=== PATIENT | female | born 1930 | race Hispanic/Latino ===

== ENCOUNTER 2017-01-08 06:15 | Day surgery (SDC) | payer MEDICARE ==
[2017-01-04 10:38] VITALS: BMI 19.5
[2017-01-08] MEDS ORDERED: Lidocaine 2% w Epi 1:100,000 Inj IJ ONE (07:02)
[2017-01-08] MEDS ORDERED: Bupivacaine 0.5% Inj(30mL) ONE (07:02)
[2017-01-08] MEDS ORDERED: Bacitracin Ointment 30 GM TUBE ONE (07:02)
[2017-01-08 07:04] VITALS: RESP 18
[2017-01-08] MEDS ORDERED: Succinylcholine 200 mg/10 ml Inj IV ONE (07:10)
[2017-01-08] MEDS ORDERED: Rocuronium 10 mg/ml (5 ml) ONE (07:10)
[2017-01-08] MEDS ORDERED: Propofol 10 mg/ml Inj (20 ML) ONE ×3 (07:10→08:07)
[2017-01-08] MEDS ORDERED: Lactated Ringer's 1,000 ML IV ONE (07:45)
[2017-01-08] MEDS ORDERED: ePHEDrine 50 mg/ml Inj ONE (08:13)
[2017-01-08] MEDS ORDERED: Bacitracin OINT 15GM TOP ONE (08:50)
[2017-01-08] MEDS ORDERED: Bupivacaine 0.5% 50 ML IJ ONE (08:50)
--- NOTE | 2017-01-08 08:53 | PCM.SURG1 ---
Surgeon's Initial Post Op Note - Surgeon's Notes Surgeon: Dr. Kumar Edge Trimming Machine Operator: Dr. Manfred Araya Type of Anesthesia: General Mask Pre-Operative Diagnosis: Status post Left forearm ORIF, external fixation to Left forearm, internal fixation of screws and plate Operative Findings: Materials: 4-0 Nylon Post-Operative Diagnosis: same Operation Performed: Removal of external fixation, removals of hardware, promary closure of skin, application of splint Specimen/Specimens Removed: none Estimated Blood Loss: EBL {In ML}: 1 Blood Products Given: N/A Drains Used: No Drains Post-Op Condition: Good Date of Surgery/Procedure: 01/08/17 Time of Surgery/Procedure: 08:28
[2017-01-08] MEDS ORDERED: Sodium Chloride 0.9% 1,000 ML IV ONE (08:55)
--- NOTE | 2017-01-08 11:32 | RAD ---
PROCEDURE: Intraoperative Fluoroscopy. HISTORY: LEFT WRIST REMOVAL OF HARDWARE FINDINGS: 7.8 seconds of fluoroscopy time utilized during this procedure.
--- NOTE | 2017-01-08 12:23 | RAD ---
PROCEDURE: Left Wrist Radiographs. HISTORY: Removal external fixator left wrist COMPARISON: Correlation made with fluoroscopy image obtained earlier same day FINDINGS: BONES: Interval removal 3 metallic fixation K-wires and external fixation hardware from the distal left radius. Healing comminuted intra-articular fractures distal left radius and ulna . Residual screw holes within the distal shafts of the radius - ulna and proximal 2nd metacarpal from since removed fixation external fixation device . ORIF of plate attached to the distal ulna is unchanged. Diffuse demineralization JOINTS: Marked irregularity of the radiocarpal articulation SOFT TISSUES: Marked postoperative irregularity of the subcutaneous tissues distal forearm and left wrist. OTHER FINDINGS: None. IMPRESSION: Interval removal 3 metallic fixation K-wires and external fixation hardware from the distal left radius. Healing comminuted intra-articular fractures distal left radius and ulna Residual screw holes within the distal shafts of the radius - and proximal 2nd metacarpal ulna from since removed fixation external fixation device . ORIF of plate attached to the distal ulna is unchanged.
[2017-01-08 14:55] VITALS: BP 153/58; PULSE 58; TEMP 97.4; O2SAT 98
--- NOTE | 2017-01-08 21:52 | OP ---
PROCEDURE DATE: 01/08/2017 PREOPERATIVE DIAGNOSES: Status post distal radius ulnar fracture with application of external fixato r and pin fixation of the distal radius, status post open reduction and internal fixation of the ulna . POSTOPERATIVE DIAGNOSES: 1. Painful hardware, deep. 2. External fixator. 3. Essentially healed distal radius ulnar fracture. PROCEDURES: 1. Removal of hardware, deep. 2. Removal of external fixator. 3. Manipulation of the wrist under anesthesia. 4. Intraarticular injection. 5. Application of volar splint. SURGEON: Nathaniel Kumar MD MILL ROLL REWINDER: Maria Eugenia Berry, Certified Registered Nursing Hemp Fiber Taker Off. ANESTHESIA: General endotracheal anesthesia, COMPLICATIONS: No complications. DRAINS: No drains. OPERATIVE INDICATION: The patient is an 86-year-old female who presents after a severe comminuted di splaced distal radius ulnar fracture. The patient presents after successful closed reduction and pin fixation of a distal radius fracture and open reduction, internal fixation of the ulnar fracture. T he construct was essentially healed. The patient presents for removal of the external fixator and re moval of hardware, deep. OPERATIVE PROCEDURE: After having obtained informed consent in the above fashion, after having horace martin discussed the pros, cons, risks and benefits of surgical approach, possibility of later seconda ry bone grafting had been discussed. The possibility of nonunion, delayed union is discussed as well . The patient can no longer stand the fixator and wishes the hardware to be removed and the fixator be removed at all cost. After having obtained informed consent in the above fashion, after having identified side, site and p rocedure and a critical pause/timeout, after the satisfactory induction of the anesthetic, patient id entified as correct in the supine position with all bony prominences well padded, the left upper extr emity is visualized under image intensification views, AP and lateral. The distal radius construct w as essentially healed. The radial joint line has been reestablished. There is some metaphyseal semaj yed union, but it is minor. At this point in time, using a wireless architect, the pins are removed below t he external fixator. The external fixator is removed. At this point in time, the left upper extremi ty is prepped and free draped in the usual fashion for upper extremity surgery. Under the surgeon's direction, the fluoroscope was positioned, video images are generated, therapeutic decisions are made there from. This having been accomplished, the 3 pins at the radial aspect of the distal radius wer e sequentially removed. Verification of position is offered on AP and lateral intensification views. At this point in time, using a [employer] ____ the remaining pins in the metacarpals and the radial sh aft are removed. The wounds are thoroughly irrigated. Closure is in layers with interrupted nylon. Intraarticular injection is offered, and injection is offered on the pin tracts. Nain Villalobos compr ession dressing and volar splint is applied. It should be noted that prior to splint application, un janna the surgeon's direction, the fluoroscope was positioned and the wrist was manipulated beautifully , some minor limitation at terminal dorsiflexion and plantarflexion. There was found to be some PIP contractures and MCP contractures and these are manipulated as well. The volar splint was applied, l eaving the MCP joint and PIP joints free and again verification of position is offered on AP and late ral image intensification views. Nathaniel Kumar MD cc: [id number] TT: 01/08/2017 21:51:28 jn
== END 2017-01-08 14:50 | disposition home or self-care (01) ==
LOC: H.OPSURG 06:15
PROVIDERS: ATTEND Orthopaedic Surgery
DX: T84.84XA Pain due to internal orthopedic prosthetic devices, implants and grafts, initial encounter (principal)
CPT/HCPCS: 20680; 20690; 25259; 73100; 88300; 88304; J0330; J0690; J2001; J2175; J2270; J2704; J3010; J7030; J7040; J7120